=== PATIENT | male | born 1990 | race African-American/Black ===

== ENCOUNTER → 2022-04-21 | Outpatient (CLI) | payer OTHER | LOC: M RAD 10:22 | PROVIDERS: ATTEND Physician Assistant | DX: J30.89 Other allergic rhinitis (principal) ==

== ENCOUNTER → 2022-07-31 | Outpatient (REF) | payer OTHER ==
[2022-07-31 09:12] LABS: SEMEN APPEARANCE OPAQUE (OPAQUE); SEMEN VISCOSITY LIQUID (LIQUID); SEMEN VOLUME 2.9 ml (2.0-5.0); SEMEN pH 8.5 (7.0-8.0)
[2022-07-31 09:13] LABS: SPERM CONCENTRATION 107.3 M/ml (>=15.0); WBC CONCENTRATION <=1 M/ml (<=1 M/ml)
== END ==
LOC: M LAB REF 09:09
PROVIDERS: ATTEND Physician Assistant Medical
DX: N46.9 Male infertility, unspecified (principal)